=== PATIENT | female | born 1950 | race Caucasian/White ===

== ENCOUNTER 2020-10-24 09:38 | Observation (INO) ==
[~2020-10-24 09:38] MED LIST: BUPIVACAINE HCL/EPINEPHRINE 50 ML VIAL IJ PRN; MUPIROCIN 22 APPL TUBE TP ONE; ceFAZolin SODIUM 1 GM VIAL IV PRN
[2020-10-24] MEDS ORDERED: ceFAZolin SODIUM 1 GM VIAL ONE (10:13)
[2020-10-24] MEDS ORDERED: MUPIROCIN 22 APPL TUBE TP ONE (10:13)
[2020-10-24] MEDS ORDERED: BUPIVACAINE HCL 50 ML VIAL IJ ONE ×2 (10:13→12:48)
[2020-10-24] MEDS: RINGER'S SOLUTION,LACTATED 1,000 ML IV PRN ×4 (10:31→17:09)
--- NOTE | 2020-10-24 10:41 | ANES ---
Anesthesia Pre Procedure Eval Vitals/Labs: Last Vital Signs Temp 35.4 C L 10/24/20 09:53 Pulse 107 H 10/24/20 09:53 Resp 16 10/24/20 09:53 BP 130/66 10/24/20 09:53 Pulse Ox 100 10/24/20 09:53 HOME MEDICATIONS thyroid (pork) 30 mg tablet 30 mg PO DAILY 05/07/18 [Last Taken Unknown] metoprolol succinate 25 mg tablet,extended release 24 hr 25 mg PO DAILY 08/19/19 [Last Taken 10/23/20 17:00] calcium carb,cit ER 600 mg calcium-vit D3 500 unit tablet,ext.release 2 tab PO DAILY tab 08/02/20 [Last Taken Unknown] estradiol 4 g VG 2XW g 08/02/20 [Last Taken Unknown] lactobacillus combination no.8 3 billion cell capsule 3,000 mmu cells PO DAILY 08/02/20 [Last Taken Unknown] jytbilmzhixb-piumnwei-csknwsl-folic acid 400 mcg-vit K1 20 mcg tablet 1 tab PO DAILY 08/02/20 [Last Taken Unknown] progesterone micronized 100 mg capsule 100 mg PO 3XW cap 08/02/20 [Last Taken Unknown] Dicyclomine HCl [Bentyl] 20 mg PO QID PRN #40 tab 10/03/20 [Last Taken Unknown] oxycodone-acetaminophen 5 mg-325 mg tablet 1 tab PO Q4H PRN #40 tab 10/19/20 [Last Taken Unknown] Allergies/Adverse Reactions: Allergies Allergy/AdvReac Type Severity Reaction Status Date / Time Sulfa (Sulfonamide Allergy rash Verified 10/24/20 09:59 Antibiotics) morphine AdvReac n/v Verified 10/24/20 09:59 - Planned Procedure Planned Procedure: Esophagogastroduodenoscopy& Lap joe Medication List Reviewed:: Yes Allergies Verified: Yes Medical History (Last Reviewed 10/24/20 @ 10:40 by Gigi Parra CRNA) Calculus of kidney Onset Date: Unknown Colitis Onset Date: Unknown Depression Onset Date: Unknown Hematuria Onset Date: Unknown Hip pain Onset Date: Unknown left Kidney cyst, acquired left- dx 30+ years ago Plant dermatitis Onset Date: 03/14/18 Hypertension Onset Date: Unknown Surgical History (Last Reviewed 10/24/20 @ 10:40 by Gigi Parra CRNA) History of cystoscopy Onset Date: 02/2004 with bladder biopsy History of left breast biopsy Onset Date: 2003 benign History of left salpingo-oophorectomy Onset Date: 1990 left History of total abdominal hysterectomy Onset Date: 1990 Hx of appendectomy age 41 Hx of dilation and curettage Hx of laminectomy age 70 Hx of lithotripsy Onset Date: 1990 Normal colonoscopy Onset Date: 2015 Dr Buchanan Status post epidural steroid injection Onset Date: 2002 cervical Family History (Last Reviewed 10/24/20 @ 10:40 by Gigi Parra CRNA) Brother Hypertension 2 brothers Myocardial infarction 1 brother Prostate cancer 1 brother Daughter Alive and well Father , age 65 CVA (cerebral vascular accident) Diabetes Hx of CABG Grandfather Heart disease Grandmother Heart disease Mother , age 86 Hypertension Diabetes Thyroid disease Son Alive and well Sister , age 54-AAA Hypertension - Family Anesthesia History Family History:: no untoward family reactions to anesthesia, no familial bleeding tendencies, no family history of clotting disorders, no family history of premature - Airway/Neck/Teeth Within Normal Limits:: Yes Teeth Condition: intact Neck Exam: full range of motion Mallampatti Score: 2 Thyromental (T-M) distance: > 6 cm Mandibulo Hyoid distance: > 3 cm - Respiratory Respiratory Physical: lungs clear Sleep Apnea currently treated: No Sleep Apnea by current assessment: No - Cardiovascular Cardiac History: hypertension Tolerate Activity: Fair Heart Sounds: S1 & S2, Regular - Gastrointestinal NPO since: 0 - Anesthesia Assessment and Plan ASA Class: PS, II Anesthesia Type Plan: General ET
[2020-10-24] MEDS ORDERED: PROPOFOL VIAL IV ONE (10:55)
[2020-10-24] MEDS ORDERED: ONDANSETRON HCL/PF 2 MG/ML VIAL ONE (10:55)
[2020-10-24] MEDS ORDERED: KETOROLAC TROMETHAMINE 30 MG/ML VIAL ONE (10:55)
[2020-10-24] MEDS ORDERED: SUCCINYLCHOLINE CHLORIDE 20 MG/ML VIAL ONE (10:55)
[2020-10-24] MEDS ORDERED: NEOSTIGMINE METHYLSULFATE 1 MG/ML VIAL ONE (10:55)
[2020-10-24] MEDS ORDERED: fentaNYL CITRATE/PF 50 MCG/ML AMPUL ONE (10:55)
[2020-10-24] MEDS ORDERED: SCOPOLAMINE HYDROBROMIDE 1.5 MG PATC TD ONE (10:55)
[2020-10-24] MEDS ORDERED: GLYCOPYRROLATE 0.2 MG/ML VIAL ONE (10:55)
[2020-10-24] MEDS ORDERED: PANTOPRAZOLE SODIUM 40 MG in NORMAL SALINE 100 ML IV PRN (13:19)
[2020-10-24] MEDS ORDERED: oxyCODONE HCL/ACETAMINOPHEN 1 TAB TABLET PO PRN ×2 (13:19→16:48)
--- NOTE | 2020-10-24 13:20 | ANES ---
Post Anesthesia Discharge - Transfer of Care Transfer of Care handoff given to nurse: Yes - Discharge from PACU Discharge from PACU when meets criteria: Yes - Awake in PACU.
[2020-10-24] MEDS ORDERED: PANTOPRAZOLE SODIUM 40 MG/100 ML PIGGYBACK IV ONE (13:55)
--- NOTE | 2020-10-24 14:04 | ANES ---
Post Anesthesia Assessment - Vital Signs Vitals: Last Vital Signs Temp 36.1 C 10/24/20 13:45 Pulse 98 10/24/20 14:00 Resp 12 10/24/20 14:00 BP 131/69 10/24/20 14:00 Pulse Ox 99 10/24/20 14:00 Airway Patency: Normal - Mental Status Level Of Consciousness: Awake, Alert, Appropriate - Pain Level Pain Score: 8 - N/V Assessment Nausea/Vomiting Presence: None Dehydration:: No
[2020-10-24] MEDS ORDERED: HYDROmorphone HCL 2 MG/ML VIAL ONE ×2 (14:18→16:30)
[2020-10-24] MEDS: HYDROmorphone HCL 1 MG/ML DISP.SYRIN IV PRN ×2 (14:25→16:32)
[2020-10-24] MEDS: CIPROFLOXACIN IN 5 % DEXTROSE 400 MG/200 ML BAG IV SCH (15:06)
[2020-10-24] MEDS: metroNIDAZOLE/SODIUM CHLORIDE 500 MG/100 ML BAG IV SCH ×2 (15:39→21:29)
--- NOTE | 2020-10-24 16:16 | OR ---
Operative Report - Dictated Report Narrative: DATE OF OPERATION: 10/24/2020 PREOPERATIVE DIAGNOSIS: GERD. Cholelithiasis. Abdominal pain POSTOPERATIVE DIAGNOSIS: Peritoneal studding (pathology pending) OPERATION: Laparoscopy with biopsies SURGEON: ALEX Britt MD ANESTHESIA: General endotracheal Gigi Parra CRNA INDICATIONS FOR PROCEDURE: The patient is a 70-year-old female referred by . She has been having sharp intermittent right upper quadrant pain since last fall. She has a gallstone on ultrasound. She was initially seen by me in August. Her symptoms were not strongly suggestive of gallbladder colic and a trial of fiber was recommended with follow-up. She presented to the emerg ency room 09/29/2020 and a CAT scan revealed inflammation suggesting colitis. She was treated with Cipro and Flagyl for 10 days. She returned to the emergency room on 10/03/2020 with abdominal pain. She already had an established appointment with her research development director Dr. Tovar the next day and kept that. He ordered an HB scan which showed low normal ejection fraction with NO reproduction of symptoms with Kinevac injection. After discussion of options she has opted for laparoscopic cholecystectomy. EGD will be performed to rule out upper GI pathology. FINDINGS: Mild gastropathy (pathology and CLOtest pending). Peritoneal studding with adhesions over the liver and to the undersurface of the anterior abdominal wall. Noninflamed gallbladder with several thin peritoneal adhesions. NARRATIVE OF PROCEDURE: The patient was identified preoperatively. Prior to the administration of anesthetic a multidisciplinary timeout observed. With the patient in the supine position, SCDs were placed, 2 g of intravenous Ancef administered, and general endotracheal anesthetic administered. EGD: The flexible fiberoptic gastroscope was advanced alongside the endotracheal tube which was seen to be in good position. The posterior pharynx and supraglottic larynx appeared normal. The scope was advanced under direct vision into the proximal esophagus which appeared normal. The esophagus appeared freely distensible with normal mucosa down to the GE junction which appeared sharp and noninflamed. The stomach was entered and insufflated with air. There was mild melendez gastric erythema but no cameron ulcerations or neoplastic lesions were appreciated including a retroflexed view of the gastric fundus. The scope was redirected toward the pylorus which appeared patent. The scope was advanced into the duodenal bulb which appeared normal. The scope was advanced across the horizontal portion of the duodenum to the ligament of Treitz. The mucosa at this level appeared entirely normal. The scope was then slowly withdrawn and the previous normal duodenal findings confirmed. The scope was withdrawn into the stomach and union representative biopsies were obtained for CLOtest and pathology. The biopsy sites appeared hemostatic. The insufflated air was removed. The scope was withdrawn from the patient and this portion of the procedure terminated. Diagnostic laparoscopy and biopsy: The patient's abdomen was prepped with Betadine solution and a generous operating field outlined with 4 sterile towels. The remainder the patient was covered with a sterile disposable drape. An infraumbilical skin incision was made. Dissection was carried along the umbilical stalk until the fascia of the linea alba was encountered. This was incised. The peritoneum was then elevated and incised to allow entry into the abdomen under direct vision. Digital palpation of the undersurface of the anterior abdominal wall revealed dense adhesions of omentum inferior to the umbilicus. These could be bluntly dissected to allow for cannula insertion. A Hussan cannula was placed, and the abdomen insufflated with CO2. The laparoscopic camera was introduced and the abdomen briefly explored. Immediately apparent was peritoneal studding and adhesions over the dome of the right lobe of the liver. The dome of the left lobe of the liver was free. There were adhesions along the undersurface of the right lobe of the liver as well. The apex of a noninflamed gallbladder was visible. Next under direct vision a 5 mm port was inserted in the mid subxiphoid position. A 5 mm camera was introduced and the lower abdomen visualized. The omentum that had been freed from the undersurface of the umbilicus was nodular and friable. The lower abdomen was obscured by adhesions. An additional 5 mm port was inserted through a separate skin incision in the right upper quadrant to allow for instrumentation. The apex of the gallbladder was grasped and elevated. Again the gallbladder did not appear acutely inflamed however there were several filmy adhesions indicating previous inflammation. With the finding of an unexpected and unidentifiable process decision was made not to proceed with chol ecystectomy. Nodules over the right liver were biopsied and submitted. Additional biopsies were obtained from the freed omentum. The abdomen was then again inspected to ensure complete hemostasis. The pneumoperitoneum was allowed to escape and after receiving a correct sponge needle instrument count attention was turned to closing the abdomen. The fascia and peritoneum at the umbilicus were approximated with interrupted sutures of 0 Vicryl. Skin incisions were approximated with interrupted vertical mattress sutures of 4-0 nylon. The incisions were washed and dried. Dressings of Bactroban ointment 2 x 2 Band-Aid and Medipore tape were applied to the umbilicus and large Band-Aids applied to the port sites. The operative procedure was terminated at this point. The patient tolerated the anesthetic and procedure well without complication. There was no measurable blood loss. 0.5% Marcaine was used for local anesthetic infiltration. She was transferred to the recovery room awake, extubated, and in stable condition. The patient remained stable throughout a period of postoperative observation. She was able to tolerate some crackers and liquids by mouth, however her pain was uncontrolled with p.o. medication, and she required several doses of IV Dilaudid with only minimal improvement. She will be admitted to observation status for IV antibiotic, pain control, diet advancement, and ambulation. I explained the operative findings to her and her using the photographs and diagrams. I explained that the process would explain her pain, not her gallbladder. I explained that the biopsies would be essential for establishing the etiology of the process. I explained it could be infectious but may be malignant and require further evaluation. Reviewed and electronically signed
[2020-10-24] MEDS ORDERED: ONDANSETRON HCL/PF 2 MG/ML VIAL IV PRN (16:48)
[2020-10-24] MEDS ORDERED: HYDROmorphone HCL IN 0.9% NACL 50 ML CARTRIDGE IV PRN (16:53)
[2020-10-24] MEDS ORDERED: NALOXONE HCL 1 MG/1 ML SYRG IV PRN (16:53)
[2020-10-24] MEDS ORDERED: diphenhydrAMINE HCL 50 MG/ML VIAL IV PRN (16:53)
[2020-10-25] MEDS: CIPROFLOXACIN IN 5 % DEXTROSE 400 MG/200 ML BAG IV SCH ×2 (01:35→14:54)
[2020-10-25] MEDS: metroNIDAZOLE/SODIUM CHLORIDE 500 MG/100 ML BAG IV SCH ×2 (05:05→14:54)
[2020-10-25] MEDS: RINGER'S SOLUTION,LACTATED 1,000 ML IV PRN (05:08)
--- NOTE | 2020-10-25 15:09 | DS ---
Date of Discharge:: 10/25/20 Hospital Course: She was brought for EGD and laparoscopic cholecystectomy through ambulatory surgery on 10/24/2020. Her EGD was relatively normal (pathology and CLOtest pending). Upon entry into the abdomen for the cholecystectomy, she was found to have peritoneal studding highly suggestive of metastatic disease but also possibly infection. The gallbladder was not acutely inflamed and was therefore left in place. Postoperatively she had considerable discomfort requiring IV narcotics for pain relief. She was placed in observation status for IV hydration and pain control. A PAYROLL COORDINATOR with oral pain medication was instituted. She was begun on IV Cipro and Flagyl to cover possible peritonitis. She rem ained very uncomfortable overnight however by the middle of the day on 10/25/2020 she was tolerating p.o. intake had been out of bed and stated her pain was controlled with p.o. medication. She will be discharged home with instructions not to lift. She may advance diet as tolerated. She is to keep her current dressings dry and intact for 48 hours but then may shower and change the dressings daily or as needed. She has a prescription for Percocet at home. She will be continued on Cipro and Flagyl pending the peritoneal biopsies. She has phone numbers to call for questions or concerns and a return office appointment has been made for 10/31/2020. Procedures Performed: see notes below - Laparoscopy with peritoneal biopsies on 10/24/2020 Discharge Location: Home Disposition: Home self-care Condition: Stable Discharge Activity: No Lifting Discharge Diet: General/regular food Referrals: Eliana Chaney MD [Primary Care Provider] - Problem Oriented Discharge Instructions to Patient/Family: Laparoscopic Cholecystectomy, Care After, Upper Endoscopy, Adult, Care After Additional Patient Instructions (free text): Please read your discharge instructions. Please contact Dr. Britt at [phone] with any questions or concerns. Your follow-up appointment is scheduled for October 31 at 1:15 p.m. Complete Home Medications List: Complete Home Medication List: thyroid (pork) 30 mg tablet 30 mg PO DAILY 05/07/18 metoprolol succinate 25 mg tablet,extended release 24 hr 25 mg PO DAILY 08/19/19 calcium carb,cit ER 600 mg calcium-vit D3 500 unit tablet,ext.release 2 tab PO DAILY tab 10/20/20 estradiol 4 g VG 2XW g 08/02/20 lactobacillus combination no.8 3 billion cell capsule 3,000 mmu cells PO DAILY 08/02/20 eerywhypaoxz-aotfzatc-nlvczfp-folic acid 400 mcg-vit K1 20 mcg tablet 1 tab PO DAILY 08/02/20 progesterone micronized 100 mg capsule 100 mg PO 3XW cap 08/02/20 Dicyclomine HCl [Bentyl] 20 mg PO QID PRN #40 tab 10/03/20 oxycodone-acetaminophen 5 mg-325 mg tablet 1 tab PO Q4H PRN #40 tab 10/19/20 Ciprofloxacin HCl [Cipro] 500 mg PO BID #14 tab 10/25/20 metroNIDAZOLE [Flagyl] 500 mg PO Q8H #21 tab 10/25/20 Forms: Patient Portal Registration
[2020-10-25 16:01] VITALS: BP 109/43
== END 2020-10-25 15:45 | disposition home or self-care (01) ==
LOC: SUR 09:38 → MS 09:38
PROVIDERS: ADMIT Surgery; ATTEND Surgery
DX: G89.18 Other acute postprocedural pain; K66.0 Peritoneal adhesions (postprocedural) (postinfection); R10.11 Right upper quadrant pain; K21.9 Gastro-esophageal reflux disease without esophagitis

== ENCOUNTER 2020-12-18 13:30 | Observation (INO) ==
[2020-12-18] MEDS ORDERED: NORMAL SALINE 1,000 ML IV ONE (14:12)
[2020-12-18 14:48] LABS: Hematocrit 31.9 % (37.0-47.0); Hemoglobin 9.4 gm/dL (12.5-16.0); Mean Cell Volume 88.4 fl (78-100); Mean Corpuscular Hgb Conc 29.5 g/dl (32-36); Neutrophil # 12.8 K/mm3 (1.3-6.0); Neutrophil % 80.9 % (42-75.0); Platelet Count 982 K/mm3 (150-450); Red Blood Count 3.61 M/mm3 (4.2-5.4); Red Cell Distribution Width 13.6 % (11.5-14.0); White Blood Count 15.8 K/mm3 (4.0-10.5)
[2020-12-18 14:59] LABS: Urine Appearance Slightly Cloudy (CLEAR); Urine Bilirubin Negative (NEGATIVE); Urine Blood Negative /ul (NEGATIVE); Urine Color Yellow; Urine Ketone Negative (NEGATIVE); Urine Specific Gravity 1.015 SP.GR. (1.005-1.010)
[2020-12-18 15:00] LABS: Urine Bacteria 1+; Urine Nitrite Negative (NEGATIVE); Urine Protein 30 mg/dL (NEGATIVE); Urine RBC None Seen /hpf (0-5); Urine Urobilinogen Normal (NORMAL); Urine WBC 0-5 /hpf (0-5)
[2020-12-18 15:11] LABS: ALT 17 U/L (19-67); AST 17 U/L (0-48); Albumin * 2.2 gm/dl (3.4-5.0); Alkaline Phosphatase * 210 U/L (50-170); Anion Gap 11.5 mmol/L (6.8-13.8); BNP * 814 pg/mL (5-325); Bilirubin, Total 0.3 mg/dL (0.0-1.1); Blood Urea Nitrogen 19 mg/dL (3-23); Ca. Corrected For Albumin 10.9 mg/dL (8.4-10.2); Calcium * 9.8 mg/dL (7.9-10.9); Carbon Dioxide 31.6 mmol/L (24-32.6); Chloride 95 mmol/L (97-106); Glucose * 123 mg/dL (70-110); Potassium 4.1 mmol/L (3.4-4.6); Sodium 134 mmol/L (132-142); TSH * 0.957 uIU/mL (0.358-3.74); Total Protein 7.9 gm/dL (6.2-8.2); Troponin I Less than 0.017 ng/mL (0.00-0.10)
--- NOTE | 2020-12-18 15:13 | ERNOTE ---
Dizziness ER Record Date of Service: 12/18/20 Presenting Symptoms: dizziness, weakness Time Seen by Provider: 12/18/20 13:49 Source: patient Exam Limitations: no limitations Immunizations: IMMUNIZATION HX Immunizations Up to Date Yes History of Influenza Vaccine Yes Hx Pneumococcal Vaccination Yes Allergies/Adverse Reactions: Allergies Allergy/AdvReac Type Severity Reaction Status Date / Time Sulfa (Sulfonamide Allergy rash Verified 12/18/20 13:54 Antibiotics) morphine AdvReac n/v Verified 12/18/20 13:54 Home Medications: HOME MEDICATIONS thyroid (pork) 30 mg tablet 30 mg PO DAILY 05/07/18 [Last Taken Unknown] metoprolol succinate 25 mg tablet,extended release 24 hr 25 mg PO DAILY 08/19/19 [Last Taken 10/23/20 17:00] calcium carb,cit ER 600 mg calcium-vit D3 500 unit tablet,ext.release 2 tab PO DAILY tab 08/02/20 [Last Taken Unknown] lactobacillus combination no.8 3 billion cell capsule 3,000 mmu cells PO DAILY 08/02/20 [Last Taken Unknown] kzalzdzsmjiz-prdfvfhn-skrfpqd-folic acid 400 mcg-vit K1 20 mcg tablet 1 tab PO DAILY 08/02/20 [Last Taken Unknown] HYDROmorphone HCL [Dilaudid] 2 mg PO Q6H PRN #20 tab 11/30/20 [Last Taken Unknown] Prochlorperazine Maleate 5 mg PO Q6H PRN #20 tab 11/30/20 [Last Taken Unknown] traMADol HCL [Tramadol HCl] 50 mg PO Q6H PRN #20 tab 11/30/20 [Last Taken Unknown] - History of Present Illness Narrative: Patient presents to the ED for dizziness, generalized weakness, feeling progressively poorly. This feels something like when she had anemia and was transfused. She is pending an oncology appointment Saturday at [facility] for possible chemotherapy. Has been seen at [facility] for her malignancy. Feels SOB. No CP. No leg swelling. SOB with exertion. No fever noted. Generally has been progressively weak. Timing and Duration: gradual onset Associated Symptoms: Present: weakness Sense of movement: Present: none Usually:: Present: walks w/o assistance Modifying Factors - (Improves): Reports: other - nothing Modifying Factors - (Worsens): Reports: other - activity Prior Treament: Reports: similar symptoms before. Denies: currently on antibiotics Review of Systems - Review of Systems Constitutional: Absent: fever EYE: Present: no symptoms reported ENT: Absent: sore throat Respiratory: Present: shortness of breath Cardiology: Absent: chest pain Gastrointestinal/Abdominal: Absent: abdominal pain Genitourinary: Absent: dysuria Skin: Absent: rash Neurological: Present: See HPI All Other Systems: All systems neg except as marked Medical History (Last Reviewed 12/18/20 @ 15:47 by David Oh MD) Calculus of kidney Onset Date: Unknown Colitis Onset Date: Unknown Depression Onset Date: Unknown Hematuria Onset Date: Unknown Hip pain Onset Date: Unknown left Kidney cyst, acquired left- dx 30+ years ago Ovarian cancer Plant dermatitis Onset Date: 03/14/18 Hypertension Onset Date: Unknown Surgical History: Surgical History (Last Reviewed 12/18/20 @ 15:47 by David Oh MD) History of laparoscopy Onset Date: 10/24/20 Bagan-metastatic carcinoma, favor Mullerian origin. Hx of cholecystectomy Hx of resection of large bowel Hx of splenectomy History of cystoscopy Onset Date: 02/2004 with bladder biopsy History of esophagogastroduodenoscopy (EGD) Onset Date: 10/24/20 10/24/20 Bagan-clotest negative. History of left breast biopsy Onset Date: 2003 benign History of left salpingo-oophorectomy Onset Date: 1990 left History of total abdominal hysterectomy Onset Date: 1990 Hx of appendectomy age 41 Hx of dilation and curettage Hx of laminectomy age 70 Hx of lithotripsy Onset Date: 1990 Normal colonoscopy Onset Date: 2015 Dr Buchanan Status post epidural steroid injection Onset Date: 2002 cervical Family History: Family History (Last Reviewed 12/18/20 @ 15:47 by David Oh MD) Brother Hypertension 2 brothers Myocardial infarction 1 brother Prostate cancer 1 brother Daughter Alive and well Father , age 65 CVA (cerebral vascular accident) Diabetes Hx of CABG Grandfather Heart disease Grandmother Heart disease Mother , age 86 Hypertension Diabetes Thyroid disease Son Alive and well Sister , age 54-AAA Hypertension Social History: (Last Reviewed 12/18/20 @ 15:47 by David Oh MD) Social History: halfway: No Marital status: household members: spouse number of children: 3 current occupational status: retired 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 Highest level of school completed/degree received: high school graduate Service: No Tobacco: Smoking Status: Never smoker Alcohol: alcohol intake: never Substance Use: substance use type: does not use Dietary Habits: caffeine: Yes caffeine comment: somedays Type: carbonated beverages Exercise: Physical activity type: none Physical activity functional status: normal ROM and activity Personal Safety: victim of physical abuse: No victim of emotional abuse: No Physical Exam - Physical Exam General Appearance: Present: alert, other - chronically ill appearing, no acute distress Head Exam: Present: normal inspection Eye Exam: Normal inspection: bilateral, PERRL: bilateral Ears, Nose, Throat: Present: dry mucous membranes Neck: Present: normal inspection Respiratory: Present: no respiratory distress. Absent: accessory muscle use Cardiovascular/Chest: Present: tachycardia Gastrointestinal/Abdominal: Present: normal bowel sounds, soft, other - she has chronic abdominal pain, no acute peritoneal signs or clinical suggetion of acute abdominal process Back Exam: Absent: CVA tenderness (R), CVA tenderness (L) Extremity Exam: Present: normal range of motion Neurological Exam: Present: alert, other - generalized weakness noted Skin Exam: Present: normal color, warm/dry, pallor Progress - Results and Orders Patient's Lab Results:: I have reviewed the patient's lab results. - Vital Signs Patient's Vital Signs:: I have reviewed the patient's vital signs. Vital Signs: Vital Signs 12/18/20 13:43 12/18/20 14:47 12/18/20 14:54 Temperature 36.6 C Pulse Rate 117 H 129 H 121 H Respiratory Rate 16 13 Blood Pressure 120/53 92/53 O2 Sat by Pulse Oximetry 97 97 12/18/20 15:06 Temperature Pulse Rate 117 H Respiratory Rate 16 Blood Pressure O2 Sat by Pulse Oximetry 96 - EKG EKG #1 EKG read: Interp. by me EKG Comments: Read as a fib, appears to be Sinus tachycardia with ectopy. Non-specific, no STEMI - X-Ray X-Ray #1 X-Ray: chest Interpretation: Interp. by me X-ray Comments: I personally reviewed the CXR image as well as official radiology report - Progress/Reassessment Chief Complaint: Dizziness Progress Note-Subjective: 12/18/20 15:53 Clinically she was dry, gentle IV fluids given. IV ABx given. Disussed options, I was concerned about her active metastatic disease with the tachycardia unresolved and episodes of hypotension here. I discussed the case with Dr Garcia, will admit obs for IV ABx and observation. Patient is agreeable. 12/18/20 15:53 Departure Clinical Impression: Pneumonia, Tachycardia, Other hypotension, Generalized weakness - Departure Disposition: Still a patient Condition: Fair Referrals: Eliana Chaney MD [Primary Care Provider] -
[2020-12-18] MEDS ORDERED: cefTRIAXone SODIUM 1,000 MG/100 ML BAG IV ONE (15:31)
[2020-12-18] MEDS ORDERED: AZITHROMYCIN 500 MG in DEXTROSE 5 % IN WATER 250 ML IV ONE ×2 (16:00)
[2020-12-18] MEDS ORDERED: PROCHLORPERAZINE MALEATE 10 MG TABLET PO PRN (18:57)
[2020-12-18] MEDS: HYDROmorphone HCL 2 MG TABLET PO PRN (19:30)
[2020-12-18] MEDS ORDERED: METOPROLOL SUCCINATE 25 MG TABLET.SA PO SCH (19:45)
--- NOTE | 2020-12-18 19:50 | HP ---
Chief Complaint - Chief Complaint Date of Service: 12/18/20 Time of Service: 19:50 Chief Complaint: lightheadedness, vision changes History of Present Illness: Patient with past medical history of ovarian cancer and hypertension was at home this morning and was not quite feeling right. She is feeling very weak and was having episodes of black spots in her vision. She did not pass out. This feels similar to when she was anemic in the past and required a transfusion. She was diagnosed with ovarian cancer last year and underwent a surgery at [place] in October where her spleen, gallbladder, part of her omentum, and part of her colon were removed. She had an anterior abdominal wound requiring wound VAC after that surgery, which is nearly healed. She has an appointment in 3 days with an oncologist in [place] to discussed her next treatment plans. She has been losing weight. She tries to eat but gets full quickly. In the ED, her white blood cell count was slightly high at 15.8. Platelets significantly high at 982. Hemoglobin was 9.4. All previous hemoglobin levels here were 13 or higher, in normal range. Lactate normal at 1.5. GFR and creatinine were normal at 80 and 0.76, respectively. Urinalysis did not show signs of infection. Chest x-ray showed a left pleural effusion. EKG printout read afib with, with a HR of 117, but I do not believe this is correct because p waves are visible. She reports that [place] found something with her heart, but she's not sure what, that required 2 days of testing prior to her surgery. She is not currently anticoagulated, but takes metoprolol, and has for years. She got a liter of fluid in the ER and feels significantly better. Her daughter was present, and also stated that her color looked better after receiving the fluids. Medical History (Last Reviewed 12/18/20 @ 17:52 by Caty Ngo RN) Calculus of kidney Onset Date: Unknown Colitis Onset Date: Unknown Depression Onset Date: Unknown Hematuria Onset Date: Unknown Hip pain Onset Date: Unknown left Kidney cyst, acquired left- dx 30+ years ago Ovarian cancer Plant dermatitis Onset Date: 03/14/18 Hypertension Onset Date: Unknown Surgical History: Surgical History (Last Reviewed 12/18/20 @ 17:52 by Caty Ngo RN) History of laparoscopy Onset Date: 10/24/20 Bagan-metastatic carcinoma, favor Mullerian origin. Hx of cholecystectomy Hx of resection of large bowel Hx of splenectomy History of cystoscopy Onset Date: 02/2004 with bladder biopsy History of esophagogastroduodenoscopy (EGD) Onset Date: 10/24/20 10/24/20 Bagan-clotest negative. History of left breast biopsy Onset Date: 2003 benign History of left salpingo-oophorectomy Onset Date: 1990 left History of total abdominal hysterectomy Onset Date: 1990 Hx of appendectomy age 41 Hx of dilation and curettage Hx of laminectomy age 70 Hx of lithotripsy Onset Date: 1990 Normal colonoscopy Onset Date: 2015 Dr Buchanan Status post epidural steroid injection Onset Date: 2002 cervical Family History: Family History (Last Reviewed 12/18/20 @ 17:52 by Caty Ngo RN) Brother Hypertension 2 brothers Myocardial infarction 1 brother Prostate cancer 1 brother Daughter Alive and well Father , age 65 CVA (cerebral vascular accident) Diabetes Hx of CABG Grandfather Heart disease Grandmother Heart disease Mother , age 86 Hypertension Diabetes Thyroid disease Son Alive and well Sister , age 54-AAA Hypertension Social History: (Last Reviewed 12/18/20 @ 17:52 by Caty Ngo RN) Social History: prison: No Marital status: household members: spouse number of children: 3 current occupational status: retired current occupation: retired 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 Absent: Fever EENTM: Present: Other - black spots in vision Respiratory: Absent: Cough, Shortness of Breath Cardiac: Present: Edema. Absent: Chest Pain Abdominal: Present: Other - gets full quickly Genitourinary: Present: No Symptoms Reported Skin: Present: Other - midline incision with mild drainage and white material Immunizations: IMMUNIZATION HX Immunizations Up to Date Yes History of Influenza Vaccine Yes Hx Pneumococcal Vaccination Yes Allergies/Adverse Reactions: Allergies Allergy/AdvReac Type Severity Reaction Status Date / Time Sulfa (Sulfonamide Allergy rash Verified 12/18/20 13:54 Antibiotics) morphine AdvReac n/v Verified 12/18/20 13:54 Home Medications: HOME MEDICATIONS thyroid (pork) 30 mg tablet 30 mg PO DAILY 05/07/18 [Last Taken Unknown] metoprolol succinate 25 mg tablet,extended release 24 hr 25 mg PO DAILY 08/19/19 [Last Taken 10/23/20 17:00] calcium carb,cit ER 600 mg calcium-vit D3 500 unit tablet,ext.release 2 tab PO DAILY tab 08/02/20 [Last Taken Unknown] lactobacillus combination no.8 3 billion cell capsule 3,000 mmu cells PO DAILY 08/02/20 [Last Taken Unknown] haxtwvmeanpn-xdyxutid-ciommys-folic acid 400 mcg-vit K1 20 mcg tablet 1 tab PO DAILY 08/02/20 [Last Taken Unknown] HYDROmorphone HCL [Dilaudid] 2 mg PO Q6H PRN #20 tab 11/30/20 [Last Taken Unknown] Prochlorperazine Maleate 5 mg PO Q6H PRN #20 tab 11/30/20 [Last Taken Unknown] traMADol HCL [Tramadol HCl] 50 mg PO Q6H PRN #20 tab 11/30/20 [Last Taken Unknown] Exam - Exam Vital Signs: Vital Signs - Last Taken Temp 36.4 C 12/18/20 19:36 Pulse 100 12/18/20 19:36 Resp 16 12/18/20 19:36 BP 126/59 12/18/20 19:36 Pulse Ox 98 12/18/20 19:36 Constitutional: Present: Alert, Cooperative, No distress, Other - thin Respiratory: Present: normal breath sounds, no respiratory distress Cardiovascular/Chest: Present: regular rate, rhythm - 98 Abdomen: Present: nondistended Extremity: Present: lower extremity edema - 1+ bilaterally Skin Exam: Present: other - 8 cm midline incisional wound with mild inferior yellowish drainage Neurologic: Present: normal mood/affect Eye contact: Present: cooperative, good eye contact Diagnostic Studies: Abnormal Lab Results 12/18/20 12/18/20 12/18/20 Range/Units 14:39 14:39 14:43 WBC 15.8 H (4.0-10.5) K/mm3 RBC 3.61 L (4.2-5.4) M/mm3 Hgb 9.4 L (12.5-16.0) gm/dL Hct 31.9 L (37.0-47.0) % MCH 26.0 L (27-31) pg MCHC 29.5 L (32-36) g/dl Plt Count 982 H (150-450) K/mm3 Immature Gran % (Auto) 0.80 H (0.001-0.429) % Immature Gran # (Auto) 0.13 H (0.000-0.0310) K/mm3 Neutrophils % 80.9 H (42-75.0) % Lymphocytes % 10.2 L (20-51) % Neutrophils # 12.8 H (1.3-6.0) K/mm3 Monocytes # 1.1 H (0.0-1.0) k/mm3 Chloride 95 L (97-106) mmol/L BUN/Creatinine Ratio 25.0 H (9.0-21.6) Random Glucose 123 H (70-110) mg/dL Calcium Adj for Albumin 10.9 H (8.4-10.2) mg/dL ALT 17 L (19-67) U/L Alkaline Phosphatase 210 H (50-170) U/L B-Natriuretic Peptide 814 H (5-325) pg/mL Albumin 2.2 L (3.4-5.0) gm/dl Urine Protein 30 H (NEGATIVE) mg/dL Ur Epithelial Cells 10-25 H (0-5) /hpf Urine Bacteria 1+ H (NONE) Laboratory Results WBC 15.8 K/mm3 (4.0-10.5) H 12/18/20 14:39 RBC 3.61 M/mm3 (4.2-5.4) L 12/18/20 14:39 Hgb 9.4 gm/dL (12.5-16.0) L 12/18/20 14:39 Hct 31.9 % (37.0-47.0) L 12/18/20 14:39 MCV 88.4 fl (78-100) 12/18/20 14:39 MCH 26.0 pg (27-31) L 12/18/20 14:39 MCHC 29.5 g/dl (32-36) L 12/18/20 14:39 RDW 13.6 % (11.5-14.0) 12/18/20 14:39 Plt Count 982 K/mm3 (150-450) H 12/18/20 14:39 MPV 9.0 fl (8-12.5) 12/18/20 14:39 Immature Gran % (Auto) 0.80 % (0.001-0.429) H 12/18/20 14:39 Immature Gran # (Auto) 0.13 K/mm3 (0.000-0.0310) H 12/18/20 14:39 Neutrophils % 80.9 % (42-75.0) H 12/18/20 14:39 Lymphocytes % 10.2 % (20-51) L 12/18/20 14:39 Monocytes % 6.9 % (0.0-9) 12/18/20 14:39 Eosinophils % 0.8 % (0.0-3.0) 12/18/20 14:39 Basophils % 0.4 % (0.0-1.0) 12/18/20 14:39 Nucleated RBC % 0.0 k/mm3 (0-1) 12/18/20 14:39 Neutrophils # 12.8 K/mm3 (1.3-6.0) H 12/18/20 14:39 Lymphocytes # 1.61 k/mm3 (1.5-3.5) 12/18/20 14:39 Monocytes # 1.1 k/mm3 (0.0-1.0) H 12/18/20 14:39 Eosinophils # 0.1 k/mm3 (0.0-0.7) 12/18/20 14:39 Absolute Basophils 0.1 k/mm3 (0.0-0.1) 12/18/20 14:39 Sodium 134 mmol/L (132-142) 12/18/20 14:39 Plasma Sodium 134 mmol/L (130-142) 12/18/20 14:39 Potassium 4.1 mmol/L (3.4-4.6) 12/18/20 14:39 Chloride 95 mmol/L (97-106) L 12/18/20 14:39 Carbon Dioxide 31.6 mmol/L (24-32.6) 12/18/20 14:39 Anion Gap 11.5 mmol/L (6.8-13.8) 12/18/20 14:39 BUN 19 mg/dL (3-23) 12/18/20 14:39 Creatinine 0.76 mg/dL (0.4-1.4) 12/18/20 14:39 Est GFR (Non-Af Amer) 80 mL/min (60-130) 12/18/20 14:39 BUN/Creatinine Ratio 25.0 (9.0-21.6) H 12/18/20 14:39 Random Glucose 123 mg/dL (70-110) H 12/18/20 14:39 Lactic Acid, Venous 1.5 mmol/L (0.4-2.0) 12/18/20 14:39 Calcium 9.8 mg/dL (7.9-10.9) 12/18/20 14:39 Calcium Adj for Albumin 10.9 mg/dL (8.4-10.2) H 12/18/20 14:39 Total Bilirubin 0.3 mg/dL (0.0-1.1) 12/18/20 14:39 AST 17 U/L (0-48) 12/18/20 14:39 ALT 17 U/L (19-67) L 12/18/20 14:39 Alkaline Phosphatase 210 U/L (50-170) H 12/18/20 14:39 Troponin I Less than 0.017 ng/mL (0.00-0.10) 12/18/20 14:39 B-Natriuretic Peptide 814 pg/mL (5-325) H 12/18/20 14:39 Total Protein 7.9 gm/dL (6.2-8.2) 12/18/20 14:39 Albumin 2.2 gm/dl (3.4-5.0) L 12/18/20 14:39 TSH 0.957 uIU/mL (0.358-3.74) 12/18/20 14:39 Urine Color Yellow 12/18/20 14:43 Urine Appearance Slightly cloudy (CLEAR) 12/18/20 14:43 Urine pH 7.0 pH (5.0-7.0) 12/18/20 14:43 Ur Specific [place] 1.015 SP.GR. (1.005-1.010) 12/18/20 14:43 Urine Protein 30 mg/dL (NEGATIVE) H 12/18/20 14:43 Urine Glucose (UA) Negative mg/dL (NEGATIVE) 12/18/20 14:43 Urine Ketones Negative mg/dL (NEGATIVE) 12/18/20 14:43 Urine Blood Negative /ul (NEGATIVE) 12/18/20 14:43 Urine Nitrate Negative (NEGATIVE) 12/18/20 14:43 Urine Bilirubin Negative mg/dl (NEGATIVE) 12/18/20 14:43 Urine Urobilinogen Normal EU/dl (NORMAL) 12/18/20 14:43 Ur Leukocyte Esterase Negative /ul (NEGATIVE) 12/18/20 14:43 Urine RBC None seen /hpf (0-5) 12/18/20 14:43 Urine WBC 0-5 /hpf (0-5) 12/18/20 14:43 Ur Epithelial Cells 10-25 /hpf (0-5) H 12/18/20 14:43 Urine Bacteria 1+ (NONE) H 12/18/20 14:43 Urine Culture Comments No culture indicated 12/18/20 14:43 SARS-CoV-2 (PCR) Not detected (NotDetected) 12/18/20 15:45 Assessment/Plan - Narrative Narrative: Suspect hypotension caused her symptoms this morning, since she feels much better after receiving a L of NS. With her elevated WBC, platelets, alk phos, weight loss, and feeling full quickly, I have concerns that her cancer is still present and spreading. She has an appt with an oncologist in 3 days, and an appt with her surgeon at [place] in 4 days. She likely can DC tomorrow to attend her previously scheduled appts. She's had cdiff twice, and has been told to not receive antibiotics unless absolutely necessary. Since she's afebrile, not coughing, not SOB, oxygenating on room air, will not continue abx. Procalcitonin pending. Her abdominal wound check is scheduled for tomorrow, and will see if she can be evaluated in her room. If not, can likely DC prior to her appt. Will continue her home meds. - Assessment/Plan (1) Other hypotension Problem: Acute (2) Wound, open, abdominal wall, anterior Problem: Acute (3) Generalized weakness Problem: Acute (4) Tachycardia Assessment: Her EKG read out as afib with RVR, but I believe p waves are visible. Will repeat EKG in the morning. She has not been told that she has afib, and is not currently anticoagulated. Problem: Acute (5) Ovarian cancer Problem: Acute (6) Essential hypertension Problem: Chronic
[2020-12-18] MEDS: traMADol HCL 50 MG TABLET PO PRN (23:20)
[2020-12-19] MEDS: HYDROmorphone HCL 2 MG TABLET PO PRN (04:42)
[2020-12-19 06:39] LABS: Hematocrit 29.5 % (37.0-47.0); Hemoglobin 8.8 gm/dL (12.5-16.0); Mean Cell Volume 87.5 fl (78-100); Mean Corpuscular Hemoglobin 26.1 pg (27-31); Mean Corpuscular Hgb Conc 29.8 g/dl (32-36); Mean Platelet Volume 9.8 fl (8-12.5); Neutrophil # 9.2 K/mm3 (1.3-6.0); Neutrophil % 77.1 % (42-75.0); Red Blood Count 3.37 M/mm3 (4.2-5.4); Red Cell Distribution Width 13.9 % (11.5-14.0)
[2020-12-19 06:43] LABS: Platelet Count 829 K/mm3 (150-450)
[2020-12-19] MEDS: traMADol HCL 50 MG TABLET PO PRN (07:06)
[2020-12-19] MEDS ORDERED: MULTIVITAMINS 1 CAP CAPSULE PO SCH (09:00)
[2020-12-19] MEDS ORDERED: LACTOBACILLUS ACIDOPHILUS 1 EACH CAPSULE PO SCH (09:00)
[2020-12-19] MEDS ORDERED: THYROID,PORK 60 MG TABLET PO SCH (09:00)
[2020-12-19] MEDS ORDERED: CALCIUM CARBONATE/VITAMIN D3 1 TAB TABLET PO SCH (09:00)
--- NOTE | 2020-12-19 10:26 | DS ---
(1) Other hypotension Problem: Resolved (2) Wound, open, abdominal wall, anterior Problem: Chronic (3) Generalized weakness Problem: Resolved (4) Tachycardia Problem: Resolved (5) Ovarian cancer Problem: Chronic (6) Essential hypertension Problem: Chronic Date of Discharge:: 12/19/20 Hospital Course: Patient with past medical history of ovarian cancer and hypertension was at home and was not quite feeling right. She had extensive surgery in October of this year for the cancer, and has an appt later this week to discuss next treatment steps. She is feeling very weak and was having episodes of black spots in her vision. She did not pass out. This feels similar to when she was anemic in the past and required a transfusion. In the ED, her white blood cell count was slightly high at 15.8. Platelets significantly high at 982. Hemoglobin was 9.4. Elevatead alkaline phosphatase of 210. All previous hemoglobin levels here were 13 or higher, in normal range. Lactate normal at 1.5. GFR and creatinine were normal at 80 and 0.76, respectively. Urinalysis did not show si gns of infection. Chest x-ray showed a left pleural effusion. EKG printout read afib with, with a HR of 117, but I do not believe this is correct because p waves are visible. Repeat EKG on the day of DC showed normal sinus rhythm. She got a liter of fluid in the ER and feels significantly better. Her daughter was present, and also stated that her color looked better after receiving the fluids . She felt comfortable going home the day of DC. Her presentation is felt to be due to decreased po intake. There is a strong likelihood that her cancer has spread. She has a wound clinic appt later today for an abdominal wound from her incision. She has an oncology appt in 2 days in [place], and a follow up surgery appt in 3 days at [place]. Procedures Performed: none Results and Findings: Lab Pending Results 12/18/20 14:39: WBC 15.8 H, RBC 3.61 L, Hgb 9.4 L, Hct 31.9 L, MCV 88.4, MCH 26.0 L, MCHC 29.5 L, RDW 13.6, Plt Count 982 H, MPV 9.0, Immature Gran % (Auto) 0.80 H, Immature Gran # (Auto) 0.13 H, Neutrophils % 80.9 H, Lymphocytes % 10.2 L, Monocytes % 6.9, Eosinophils % 0.8, Basophils % 0.4, Nucleated RBC % 0.0, Neutrophils # 12.8 H, Lymphocytes # 1.61, Monocytes # 1.1 H, Eosinophils # 0.1, Absolute Basophils 0.1 12/18/20 14:39: Sodium 134, Plasma Sodium 134, Potassium 4.1, Chloride 95 L, Carbon Dioxide 31.6, Anion Gap 11.5, BUN 19, Creatinine 0.76, Est GFR (Non-Af Amer) 80, BUN/Creatinine Ratio 25.0 H, Random Glucose 123 H, Calcium 9.8, Calcium Adj for Albumin 10.9 H, Total Bilirubin 0.3, AST 17, ALT 17 L, Alkaline Phosphatase 210 H, Troponin I Less than 0.017, B-Natriuretic Peptide 814 H, Total Protein 7.9, Albumin 2.2 L, TSH 0.957 12/18/20 14:39: Lactic Acid, Venous 1.5 12/18/20 14:39: Procalcitonin Less than 0.05 L 12/18/20 14:43: Urine Color Yellow, Urine Appearance Slightly cloudy, Urine pH 7.0, Ur Specific [place] 1.015, Urine Protein 30 H, Urine Glucose (UA) Negative, Urine Ketones Negative, Urine Blood Negative, Urine Nitrate Negative, Urine Bilirubin Negative, Urine Urobilinogen Normal, Ur Leukocyte Esterase Negative, Urine RBC None seen, Urine WBC 0-5, Ur Epithelial Cells 10-25 H, Urine Bacteria 1+ H, Urine Culture Comments No culture indicated 12/18/20 15:45: SARS-CoV-2 (PCR) Not detected 12/19/20 06:30: WBC 12.0 H D, RBC 3.37 L, Hgb 8.8 L, Hct 29.5 L, MCV 87.5, MCH 26.1 L, MCHC 29.8 L, RDW 13.9, Plt Count 829 H, MPV 9.8, Immature Gran % (Auto) 1.10 H, Immature Gran # (Auto) 0.13 H, Neutrophils % 77.1 H, Lymphocytes % 12.1 L, Monocytes % 7.7, Eosinophils % 1.3, Basophils % 0.7, Nucleated RBC % 0.0, Neutrophils # 9.2 H, Lymphocytes # 1.44 L, Monocytes # 0.9, Eosinophils # 0.2, Absolute Basophils 0.1 Discharge Location: Home Disposition: Home self-care Condition: Fair Discharge Activity: Activity as tolerated Discharge Diet: General/regular food Referrals: Jazmine Garcia DO [Primary Care Provider] - One Week Complete Home Medications List: Complete Home Medication List: thyroid (pork) 30 mg tablet 30 mg PO DAILY 05/07/18 metoprolol succinate 25 mg tablet,extended release 24 hr 25 mg PO DAILY 08/19/19 calcium carb,cit ER 600 mg calcium-vit D3 500 unit tablet,ext.release 2 tab PO DAILY tab 08/02/20 lactobacillus combination no.8 3 billion cell capsule 3,000 mmu cells PO DAILY 08/02/20 wlvuyqljqlzv-tivdbkty-tgobodp-folic acid 400 mcg-vit K1 20 mcg tablet 1 tab PO DAILY 08/02/20 HYDROmorphone HCL [Dilaudid] 2 mg PO Q6H PRN #20 tab 11/30/20 Prochlorperazine Maleate 5 mg PO Q6H PRN #20 tab 11/30/20 traMADol HCL [Tramadol HCl] 50 mg PO Q6H PRN #20 tab 11/30/20 Forms: Patient Portal Registration
[2020-12-19 11:24] VITALS: BP 123/56
[2020-12-19] MEDS ORDERED: AZITHROMYCIN 250 MG TABLET PO SCH (16:00)
== END 2020-12-19 11:30 | disposition home or self-care (01) ==
LOC: MS 13:30 → ER 13:30 → MS 17:47
PROVIDERS: ADMIT Family Medicine; ATTEND Family Medicine
DX: R53.1 Weakness; R42 Dizziness and giddiness; I10 Essential (primary) hypertension; S31.109A Unspecified open wound of abdominal wall, unspecified quadrant without penetration into peritoneal cavity, initial encounter; J90 Pleural effusion, not elsewhere classified; R00.0 Tachycardia, unspecified; I95.89 Other hypotension; C56.9 Malignant neoplasm of unspecified ovary